=== PATIENT | female | born 1940 | race Caucasian/White ===

== ENCOUNTER 2016-05-26 17:20 | Inpatient (IN) | payer OTHER, MEDICAID ==
[~2016-05-26] VITALS: Ht 157.5 cm; Wt 78.1 kg
[2016-05-26 17:25] VITALS: Ht 157.5 cm; Wt 78.1 kg
--- NOTE | 2016-05-26 18:09 | RADRPT ---
PROCEDURE: US Lower extremity Venous. CLINICAL INDICATION: Right leg swelling TECHNIQUE: Multiple sonographic images of the right lower extremity deep venous system was obtaine d utilizing grayscale, color-flow, compressive sonography and doppler imaging with augmentation. Th e images were reviewed on a PACS workstation. COMPARISON: None. FINDINGS: There is normal compressibility and flow within the right common femoral vein. The right superficial femoral vein and popliteal vein are not compressible, consistent with DVT.. RPTAT: AA IMPRESSION: Right leg DVT. Results given to BRE Valenzuela by the technologist at the time of examination. .Ghassan Charles MD, MD Date Time Electronically viewed and signed by .Ghassan Charles MD, on 05/26/2016 18:08 .S/
[2016-05-26] MEDS ORDERED: ENOXAPARIN 100 MG/ML SYG SC SCH (19:30)
--- NOTE | 2016-05-26 20:25 | RADRPT ---
PROCEDURE: XR Chest. CLINICAL INDICATION: Chest pain TECHNIQUE: A single portable view of the chest was obtained. COMPARISON: None FINDINGS: The aorta is tortuous and atherosclerotic. The cardiomediastinal silhouette is otherwise mildly enl arged. The lungs and pleural spaces are clear. The soft tissues and osseous structures demonstrate benign age related senescent changes. IMPRESSION: Mild cardiomegaly. RPTAT: HPNM Physician Kayla Date Time Electronically viewed and signed by Flavio An Physician on 05/26/2016 20:24 /
[2016-05-26 20:26] LABS: BASOPHILS % 0.5 % (0.0-2.0); EOSINOPHILS # 0.1 10^3/ul (0.0-0.5); EOSINOPHILS % 0.9 % (0.0-7.0); HEMATOCRIT 43.3 % (37.0-47.0); HEMOGLOBIN 14.7 g/dl (12.0-16.0); LYMPHOCYTES % 12.2 % (15.0-51.0); MEAN CORPUSCULAR HEMOGLOBIN 32.7 pg (29.0-33.0); MEAN CORPUSCULAR HGB CONC 33.9 g/dl (32.0-37.0); MEAN CORPUSCULAR VOLUME 96.4 fl (82.0-101.0); MEAN PLATELET VOLUME 9.3 fl (7.4-10.4); MONOCYTE # 0.7 10^3/ul (0.3-0.9); MONOCYTES % 8.7 % (0.0-11.0); NEUTROPHIL # 6.6 10^3/ul (1.6-7.5); NEUTROPHILS % 77.7 % (39.0-77.0); PLATELET COUNT 191 10^3/UL (140-440); RED BLOOD COUNT 4.49 10^6/ul (4.20-5.40); RED CELL DISTRIBUTION WIDTH 14.8 % (11.5-14.5); UNCORRECTED WBC 8.5 10^3/ul (4.8-10.8); WHITE BLOOD COUNT 8.5 10^3/ul (4.8-10.8)
[2016-05-26 20:27] LABS: ALBUMIN 3.4 g/dl (3.3-4.9)
[2016-05-26 20:28] LABS: CONDITION 1; INR 1.04; LH ANALYZER COMMENTS 1; POTASSIUM 4.7 mmol/L (3.5-5.1); PROTIME 13.6 Sec (12.2-14.2); PT RATIO 1.1
--- NOTE | 2016-05-26 20:28 | ERA ---
ER Documentation Chief Complaint Date/Time DATE: 05/26/16 TIME: 20:24 Chief Complaint RIGHT LEG SWELLING X 2-3 DAYS, HAS DEMENTIAQ HPI 76-year-old female history of dementia, schizophrenia who presents with right lower extremity swelling for approximately 3 days. No trauma, no fevers or chills, no redness no streaking, no chest pain or shortness of breath. She did have a cough several weeks ago but none currently. She denies any pleuritic pain, no history of DVT. No recent travel, immobilization or surgery. ROS All systems reviewed and are negative except as per history of present illness. PMhx/Soc Hx Psychiatric Problems: Yes (DEMENTIA) Hx Alcohol Use: No Hx Substance Use: No Hx Tobacco Use: No FmHx Family History: No diabetes Physical Exam Vitals Vital Signs Date Time Temp Pulse Resp B/P Pulse Ox O2 Delivery O2 Flow Rate FiO2 05/26/16 17:25 98.1 84 18 149/84 9 Physical Exam General: Well developed, well nourished, no acute distress Head: Normocephalic, atraumatic. Eyes: Pupils equally reactive, EOM intact ENT: Moist mucous membranes Neck: Supple, no lymphadenopathy Respiratory: Lungs clear bilaterally, no distress Cardiovascular: RRR, no murmurs, rubs, or gallops Abdominal: Soft, non-tender, non-distended, no peritoneal signs : Deferred MSK: Unilateral swelling to the right lower extremity with edema, 2+ pulses, positive Homans sign Neurologic: Alert and oriented to person which appears to be her baseline, moving all extremities, normal speech, no focal weakness, no cerebellar signs Skin: No rash Psych: Normal mood Result Diagram: 05/26/16200905/26/162009 Results 24 hrs Laboratory Tests Test 05/26/16 20:10 Activated Partial Thromboplast Time 30.5Sec Alanine Aminotransferase (ALT/SGPT) Pending Albumin 3.4g/dl Albumin/Globulin Ratio 1.00 Alkaline Phosphatase 83IU/L Anion Gap 15 Aspartate Amino Transf (AST/SGOT) 26IU/L Basophils # 0.010^3/ul Basophils % 0.5% Blood Morphology Comment Blood Urea Nitrogen Pending Calcium Level Pending Carbon Dioxide Level 27mmol/L Chloride Level 106mmol/L Creatinine 0.72mg/dl Direct Bilirubin 0.00mg/dl Eosinophils # 0.110^3/ul Eosinophils % 0.9% Globulin 3.40g/dl Glucose Level Pending Hematocrit 43.3% Hemoglobin 14.7g/dl INR International Normalized Ratio 1.04 Indirect Bilirubin 0.3mg/dl Lymphocytes # 1.010^3/ul Lymphocytes % 12.2% Mean Corpuscular Hemoglobin 32.7pg Mean Corpuscular Hemoglobin Concent 33.9g/dl Mean Corpuscular Volume 96.4fl Mean Platelet Volume 9.3fl Monocytes # 0.710^3/ul Monocytes % 8.7% Neutrophils # 6.610^3/ul Neutrophils % 77.7% Nucleated Red Blood Cells # 0.010^3/ul Nucleated Red Blood Cells % 0.0/100WBC Platelet Count 35037^3/UL Potassium Level 4.7mmol/L Prothrombin Time 13.6Sec Prothrombin Time Ratio 1.1 Red Blood Count 4.4910^6/ul Red Cell Distribution Width 14.8% Sodium Level 143mmol/L Total Bilirubin 0.3mg/dl Total Protein 6.8g/dl White Blood Count 8.510^3/ul Current Medications Medications (Trade) Dose Ordered Sig/Paul Route PRN Reason Start Time Stop Time Status Last Admin Dose Admin Enoxaparin Sodium (Lovenox) 78.5 mg ONCE SC 05/26/16 19:30 Procedures/MDM EKG, MONITORS, & DIAGNOSTIC IMAGING: EKG: I reviewed and interpreted a 12-lead EKG. Rhythm: Normal sinus rhythm Ectopy: None Intervals: No abnormalities ST segments: No elevations or depressions T waves: No contiguous inversions Chest x-ray: I reviewed and interpreted a 1 view of the chest Mediastinum: No enlargement Cardiac silhouette: No cardiomegaly Airspace: Clear lung lopez bilaterally without evidence of pneumothorax Bones: No evidence of fracture Lower extremity duplex FINDINGS: There is normal compressibility and flow within the right common femoral vein. The right superficial femoral vein and popliteal vein are not compressible, consistent with DVT.. RPTAT: AA IMPRESSION: Right leg DVT. Results given to BRE Valenzuela by the technologist at the time of examination. LAB INTERPRETATION: No coagulopathy MEDICAL DECISION MAKING: Patient has clinical signs and symptoms consistent with lower extremity DVT. Likely proximal. Unclear etiology other than age, consider possible decreased mobility. No recent trauma. No signs or symptoms concerning for pulmonary embolism. Given the patient's age, dementia she is likely a fall risk and would benefit from inpatient hospitalization for further anticoagulation risk stratification discussion. Hypercoagulable workup would also be reasonable to rule out malignancy. ER COURSE: The patient was given Lovenox 1/kg after coagulation profile results. She is stable. She will be admitted to the medical surgical floor I kept the patient and/or family informed of laboratory and diagnostic imaging results throughout the emergency room course. DISPOSITION PLAN: Medical surgical admission CONSULTATION: Accepting care team and consultations: I discussed the current laboratory data, diagnostic imaging and emergency care provided. Admitting team: Dr. Trav Gerard Admitting team indication: Insurance directed, [facility] Departure Diagnosis: Primary Impression: Dementia Qualified Code: F03.90 - Dementia without behavioral disturbance, unspecified dementia type Additional Impression: Acute deep vein thrombosis (DVT) of right lower extremity Qualified Code: I82.431 - Acute deep vein thrombosis (DVT) of popliteal vein of right lower extremity Condition: Stable ARLEN BOX MD May 26, 2016 20:28
[2016-05-26 20:29] LABS: PARTIAL THROMBOPLASTIN TIME 30.5 Sec (25.0-35.0)
[2016-05-26 20:30] LABS: BILIRUBIN,INDIRECT 0.3 mg/dl (0-1.1); BILIRUBIN,TOTAL 0.3 mg/dl (0.2-1.3); CREATININE 0.72 mg/dl (0.44-1.00); TOTAL PROTEIN 6.8 g/dl (6.1-8.1)
[2016-05-26 20:31] VITALS: TEMP 98.1
[2016-05-26 20:31] LABS: CALCIUM 8.7 mg/dl (8.4-10.2)
[2016-05-26] MEDS ORDERED: ACETAMINOPHEN 325 MG TAB PO PRN (21:00)
[2016-05-26] MEDS ORDERED: ONDANSETRON 4 MG INJ IV PRN (21:00)
[2016-05-26] MEDS ORDERED: MECL-77 PO (21:23)
[2016-05-26] MEDS ORDERED: MEMA14CA PO (21:23)
[2016-05-26] MEDS ORDERED: DONE5TAB7 PO (21:24)
[2016-05-26] MEDS ORDERED: RANI150T5 PO (21:24)
[2016-05-26] MEDS ORDERED: ASPI-664 PO (21:25)
[2016-05-26] MEDS ORDERED: METO-429 PO (21:25)
[2016-05-26] MEDS ORDERED: LORA10TA3 PO (21:25)
[2016-05-26] MEDS ORDERED: ARIP20TA6 PO (21:26)
[2016-05-26] MEDS ORDERED: MIRT7.5T8 PO (21:26)
[2016-05-26 23:44] VITALS: BP 124/72; PULSE 93; RESP 24
[2016-05-27] MEDS ORDERED: ONDANSETRON 4 MG INJ IV PRN (04:30)
[2016-05-27] MEDS ORDERED: ACETAMINOPHEN 325 MG TAB PO PRN (04:30)
[2016-05-27] MEDS ORDERED: MECLIZINE 25 MG TAB PO PRN (04:30)
[2016-05-27 07:04] LABS: ALBUMIN 3.6 g/dl (3.3-4.9); BASOPHILS % 0.4 % (0.0-2.0); EOSINOPHILS # 0.1 10^3/ul (0.0-0.5); EOSINOPHILS % 1.5 % (0.0-7.0); HEMATOCRIT 43.9 % (37.0-47.0); LYMPHOCYTES # 1.4 10^3/ul (0.8-2.9); LYMPHOCYTES % 19.9 % (15.0-51.0); MEAN CORPUSCULAR HGB CONC 34.1 g/dl (32.0-37.0); MEAN CORPUSCULAR VOLUME 96.8 fl (82.0-101.0); MONOCYTE # 0.7 10^3/ul (0.3-0.9); MONOCYTES % 9.7 % (0.0-11.0); NEUTROPHIL # 4.8 10^3/ul (1.6-7.5); NEUTROPHILS % 68.5 % (39.0-77.0); PLATELET COUNT 186 10^3/UL (140-440); RED BLOOD COUNT 4.54 10^6/ul (4.20-5.40); RED CELL DISTRIBUTION WIDTH 14.5 % (11.5-14.5)
[2016-05-27 07:05] LABS: POTASSIUM 3.8 mmol/L (3.5-5.1)
[2016-05-27 07:07] LABS: ALBUMIN/GLOBULIN RATIO 1.02; BILIRUBIN,INDIRECT 0.6 mg/dl (0-1.1); BILIRUBIN,TOTAL 0.6 mg/dl (0.2-1.3); CONDITION 1; CREATININE 0.69 mg/dl (0.44-1.00); LH ANALYZER COMMENTS 1; TOTAL PROTEIN 7.1 g/dl (6.1-8.1)
[2016-05-27 07:08] LABS: CALCIUM 8.6 mg/dl (8.4-10.2)
[2016-05-27] MEDS ORDERED: [UNRECOGNIZED DRUG - REMARK] XX SCH (07:30)
[2016-05-27 07:45] VITALS: BP 103/57; PULSE 95; RESP 16
[2016-05-27] MEDS ORDERED: ENOXAPARIN 80 MG/0.8 ML SYG SC SCH (09:00)
[2016-05-27 09:11] VITALS: BP 139/63; PULSE 110
[2016-05-27] MEDS: ARIPIPRAZOLE 10 MG TAB PO SCH (09:16)
[2016-05-27] MEDS: ASPIRIN (EC) 81 MG TAB PO SCH (09:16)
[2016-05-27] MEDS: DOCUSATE SODIUM 100 MG CAP PO SCH ×3 (09:16→20:54)
[2016-05-27] MEDS: LORATADINE 10 MG TAB PO SCH (09:16)
[2016-05-27] MEDS: RANITIDINE 150 MG TAB PO SCH ×2 (09:16→20:53)
[2016-05-27] MEDS: DONEPEZIL 5 MG TAB PO SCH (09:16)
[2016-05-27] MEDS: METOPROLOL 50 MG TAB PO SCH (09:17)
[2016-05-27] MEDS: MEMANTINE 5 MG TAB PO SCH ×2 (10:55→20:53)
--- NOTE | 2016-05-27 15:06 | QN ---
Documentation Comment [id number] MITUL CUNHA MD May 27, 2016 15:06
--- NOTE | 2016-05-27 15:29 | HP ---
DATE OF ADMISSION: 05/26/2016 HISTORY OF PRESENT ILLNESS: The patient was admitted when the patient was noted to have lower extremity pain. The patient's hematocrit 43.3, potassium 4.7. Patient's pulse 54 and patient noted to have a deep venous thrombosis of the lower extremity and is being admitted for further management. PAST MEDICAL HISTORY: Positive for dementia. ALLERGY HISTORY: NEGATIVE. FAMILY HISTORY: Negative. SOCIAL HISTORY: Denies. MEDICATION HISTORY: Listed medications: 1. Abilify. 2. Aspirin. 3. Aricept. 4. Loratadine. 5. Meclizine. 6. Namenda. 7. Metoprolol. 8. Mirtazapine. 9. Ranitidine. CURRENT MEDICATIONS: Include: 1. Apixaban. 2. Remeron. 3. Docusate sodium. 4. Aripiprazole. 5. Aspirin. 6. Aricept. 7. Ranitidine. 8. Namenda. 9. Zofran. REVIEW OF SYSTEMS HEENT: Unremarkable. RESPIRATORY: Unremarkable. CARDIOVASCULAR: Unremarkable. ABDOMEN: Unremarkable. EXTREMITIES: Pain. CENTRAL NERVOUS SYSTEM: Unremarkable. PHYSICAL EXAMINATION: GENERAL: The patient is awake and alert. VITAL SIGNS: Stable. HEAD: Atraumatic, normocephalic. Pupils are equal and reactive to light. NECK: Supple. No JVD. LUNGS: Clear. CARDIOVASCULAR: S1, S2 normal. ABDOMEN: Soft, nontender. Bowel sounds present. No palpable mass or hepatosplenomegaly. No guarding or rebound tenderness. EXTREMITIES: No cyanosis, clubbing, or edema. CENTRAL NERVOUS SYSTEM: The patient is awake, alert, moving both lower extremities. is swollen. Range of motion is restricted because of the pain. LABORATORY DATA: Chest x-ray shows the patient has mild cardiomegaly. The patient has normal compressibility and flow within the right common femoral vein. The right superficial femoral vein and popliteal vein are not compressible. IMPRESSION: 1. Deep venous thrombosis. 2. Dementia. PLAN: Continue home medications, continue Eliquis. The patient is stable. Dictated By: MITUL CUNHA MD BS/NTS Conf#: [id number] DID#: [id number] MTDD
[2016-05-27 20:05] VITALS: BP 111/52; RESP 18
[2016-05-27] MEDS: MIRTAZAPINE 15 MG TAB PO SCH (20:53)
[2016-05-27] MEDS: APIXABAN 5 MG TABLET PO SCH (20:54)
[2016-05-28 07:22] VITALS: BP 103/60; RESP 16
[2016-05-28] MEDS: LORATADINE 10 MG TAB PO SCH (09:54)
[2016-05-28] MEDS: RANITIDINE 150 MG TAB PO SCH ×2 (09:54→20:59)
[2016-05-28] MEDS: MEMANTINE 5 MG TAB PO SCH ×2 (09:54→20:59)
[2016-05-28] MEDS: ASPIRIN (EC) 81 MG TAB PO SCH (09:54)
[2016-05-28] MEDS: METOPROLOL 50 MG TAB PO SCH (09:54)
[2016-05-28] MEDS: DONEPEZIL 5 MG TAB PO SCH (09:54)
[2016-05-28] MEDS: APIXABAN 5 MG TABLET PO SCH ×2 (09:54→20:58)
[2016-05-28] MEDS: ARIPIPRAZOLE 10 MG TAB PO SCH (09:54)
[2016-05-28] MEDS: DOCUSATE SODIUM 100 MG CAP PO SCH ×3 (09:54→20:59)
[2016-05-28 09:57] VITALS: BP 120/54; PULSE 93
--- NOTE | 2016-05-28 13:28 | PDOCDIS ---
Discharge Instructions CONDITION Patient Condition: Stable HOME CARE INSTRUCTIONS: Special Diet: 2gm na ACTIVITY: Activity Restrictions: Slowly Increase Activity Bathing Restrictions: falls precaution FOLLOW UP/APPOINTMENTS Appointments f/u own pcp 1 wk MITUL CUNHA MD May 28, 2016 13:28
[2016-05-28] MEDS ORDERED: APIX5TAB PO (13:31)
--- NOTE | 2016-05-28 14:25 | PN ---
Date/Time of Note Date/Time of Note DATE: 05/28/16 TIME: 14:24 Assessment/Plan VTE Prophylaxis VTE Prophylaxis Intervention: other Lines/Catheters IV Catheter Type (from Nrs): Saline Lock Assessment/Plan Chief Complaint/Hosp Course IMPRESSION: 1. Deep venous thrombosis. 2. Dementia. PLAN ELIQUIS HOME Problems: Subjective 24 Hr Interval Summary Cardiovascular: no complaints Gastrointestinal: no complaints Genitourinary: no complaints Musculoskeletal: no complaints Exam/Review of Systems Vital Signs Vitals Vital Signs Date Time Temp Pulse Resp B/P Pulse Ox O2 Delivery O2 Flow Rate FiO2 05/28/16 09:57 93 120/54 05/28/16 07:22 98.5 16 92 05/27/16 07:45 Room Air Intake and Output 05/27/16 05/27/16 05/28/16 15:00 23:00 07:00 Intake Total 900 ml 300 ml Balance 900 ml 300 ml Exam Respiratory: clear to auscultation Cardiovascular: regular rate and rhythm Gastrointestinal: soft Musculoskeletal: nl extremities to inspection Extremities: normal pulses Results Result Diagram: 05/27/16 0540 05/27/16 0540 Medications Medications Current Medications Acetaminophen (Tylenol Tab) 650 mg Q4H PRN PO PAIN AND OR ELEVATED TEMP; Start 05/27/16 at 04:30 Docusate Sodium (Colace) 100 mg TID PO Last administered on 05/28/16 12:02; Admin Dose 100 MG; Start 05/27/16 at 09:00 Ondansetron HCl (Zofran Inj) 4 mg Q4H PRN IV NAUSEA AND/OR VOMITING; Start at 04:30 Aripiprazole (Abilify) 20 mg DAILY PO Last administered on 05/28/16 09:54; Admin Dose 20 MG; Start 05/27/16 at 09:00 Aspirin (Halfprin) 81 mg DAILY PO Last administered on 05/28/16 09:54; Admin Dose 81 MG; Start 05/27/16 at 09:00 Donepezil HCl (Aricept) 5 mg DAILY PO Last administered on 05/28/16 09:54; Admin Dose 5 MG; Start 05/27/16 at 09:00 Loratadine (Claritin) 10 mg DAILY PO Last administered on 05/28/16 09:54; Admin Dose 10 MG; Start 05/27/16 at 09:00 Meclizine HCl (Antivert) 25 mg DAILY PRN PO DIZZINESS; Start 05/27/16 at 04:30 Metoprolol Tartrate (Lopressor) 50 mg DAILY PO Last administered on 05/28/16 09:54; Admin Dose 50 MG; Start 05/27/16 at 09:00 Mirtazapine (Remeron) 7.5 mg HS PO Last administered on 05/27/16 20:53; Admin Dose 7.5 MG; Start 05/27/16 at 21:00 Ranitidine HCl (Zantac) 150 mg Q12 PO Last administered on 05/28/16 09:54; Admin Dose 150 MG; Start 05/27/16 at 09:00 Memantine (Namenda) 5 mg BID PO Last administered on 05/28/16 09:54; Admin Dose 5 MG; Start 05/27/16 at 09:00 Apixaban (Eliquis) 10 mg BID PO Last administered on 05/28/16 09:54; Admin Dose 10 MG; Start 05/27/16 at 21:00; Stop 06/03/16 at 09:01 Apixaban (Eliquis) 5 mg BID PO ; Start 06/03/16 at 21:00; Stop 08/25/16 at 09:01 MITUL CUNHA MD May 28, 2016 14:25
[2016-05-28] MEDS: MIRTAZAPINE 15 MG TAB PO SCH (21:03)
[2016-05-28 21:09] VITALS: BP 112/56; RESP 20
[2016-05-29 07:25] VITALS: BP 119/65; RESP 16
[2016-05-29] MEDS: DONEPEZIL 5 MG TAB PO SCH (09:15)
[2016-05-29] MEDS: ARIPIPRAZOLE 10 MG TAB PO SCH (09:15)
[2016-05-29] MEDS: ASPIRIN (EC) 81 MG TAB PO SCH (09:15)
[2016-05-29] MEDS: METOPROLOL 50 MG TAB PO SCH (09:16)
[2016-05-29] MEDS: APIXABAN 5 MG TABLET PO SCH (09:17)
[2016-05-29] MEDS: RANITIDINE 150 MG TAB PO SCH (09:17)
[2016-05-29] MEDS: DOCUSATE SODIUM 100 MG CAP PO SCH (09:17)
[2016-05-29] MEDS: MEMANTINE 5 MG TAB PO SCH (09:17)
[2016-05-29] MEDS: LORATADINE 10 MG TAB PO SCH (09:17)
--- NOTE | 2016-05-30 20:52 | QN ---
Documentation Comment [id number] MITUL CUNHA MD May 30, 2016 20:52
--- NOTE | 2016-05-30 22:21 | DS ---
DATE OF ADMISSION: 05/26/2016 DATE OF DISCHARGE: 05/29/2016 HOSPITAL COURSE: The patient is a 76-year-old female who was admitted with diagnosis of lower extre mity pain. The patient was noted to have deep venous thrombosis of the lower extremity. The patien t also has history of dementia. The patient had ultrasound of the leg done, shows right leg deep ve nous thrombosis. The patient started on Lovenox, switched to Eliquis. The patient's family was inf ormed. The patient to continue this medication and follow up with primary care doctor. The patient is stable at the time of discharge. DISCHARGE DIAGNOSES: 1. Right lower extremity deep venous thrombosis. 2. Dementia. DISCHARGE MEDICATIONS: 1. Apixaban 10 mg b.i.d. for 7 days total and then 5 mg b.i.d. 2. Continue Abilify 20 mg daily. 3. Aspirin. 4. Aricept, donepezil. 5. Loratadine. 6. Meclizine. 7. Namenda. 8. Metoprolol. 9. Remeron. 10. Ranitidine. DISCHARGE INSTRUCTIONS: The patient to follow up with PCP. Fall precautions, the patient to contin ue. DISCHARGE CONDITION: The patient is stable at the time of discharge. Dictated By: MITUL GRAY/VANE Conf#: [id number] DID#: [id number]
[2016-06-03] MEDS ORDERED: APIXABAN 5 MG TABLET PO SCH (21:00)
== END 2016-05-29 11:04 | disposition home or self-care (01) | DRG 301 ==
LOC: FTE 17:20 → PP2 21:01
PROVIDERS: ADMIT Internal Medicine Nephrology; ATTEND Internal Medicine Nephrology
DX: I82.431 Acute embolism and thrombosis of right popliteal vein (principal); I82.411 Acute embolism and thrombosis of right femoral vein; F03.90 Unspecified dementia, unspecified severity, without behavioral disturbance, psychotic disturbance, mood disturbance, and anxiety; Z79.02 Long term (current) use of antithrombotics/antiplatelets; Z79.82 Long term (current) use of aspirin
CPT/HCPCS: 36415; 71010; 80053; 85025; 85610; 85730; 93005; 93971; 96372; J0400; J1650